=== PATIENT | female | born 1980 | race Caucasian/White ===

== ENCOUNTER 2017-07-17 23:19 | Emergency (ER) | END 2017-07-18 06:24 | disposition left against medical advice (07) | DX: Z53.21 Procedure and treatment not carried out due to patient leaving prior to being seen by health care provider (principal) ==

== ENCOUNTER 2017-08-24 18:05 | Emergency (ER) | END 2017-08-24 18:46 | disposition left against medical advice (07) | DX: Z53.21 Procedure and treatment not carried out due to patient leaving prior to being seen by health care provider (principal) ==

== ENCOUNTER 2017-12-26 14:13 | Emergency (ER) | END 2017-12-26 19:04 | disposition home or self-care (01) ==